=== PATIENT | female | born 1990 | race Caucasian/White ===

== ENCOUNTER 2017-09-07 13:31 | Emergency (ER) | payer SELFPAY ==
[2017-09-07 14:03] LABS: #Basophils 0.1 thou/uL (0.0-0.2); #Eosinphils 0.3 thou/uL (0.0-0.7); #Lymphocytes 2.4 thou/uL (1.20-3.40); #Monocytes 0.3 thou/uL (0.11-0.59); #Neutrophils 5.5 thou/uL (1.40-6.50); %Basophils 0.6 % (0.0-1.0); %Lymphocytes 27.9 % (21.0-51.0); %Monocytes 3.6 % (0.0-10.0); Hematocrit 40.7 % (36.0-47.0); Mean Platelet Volume 7.5 fL (7.4-10.4); Red Blood Cell (RBC) Count 4.55 mill/uL (4.20-5.40); White Blood Cell (WBC) Count 8.4 thou/uL (4.8-10.8)
--- NOTE | 2017-09-07 14:39 | ULT ---
LIMITED OB ULTRASOUND: Date: 09/07/17 HISTORY: 27-year-old female (9 weeks) with onset of vaginal bleeding today at work. FINDINGS: A single live intrauterine gestation is seen with measurements corresponding to an estimated gestati onal age of 9 weeks/0 days and MIKE at 04/12/18. heart rate measures 160 beats/minute. [place] length measures 1.89 cm, gestational sac diameter 4.0 cm, and yolk sac diameter 0.4 cm. A small a mount of subchorionic hemorrhage is seen. No free fluid is seen in the cul-de-sac. Both ovaries have a normal appearance and demonstrate flow. IMPRESSION: 1. Single live intrauterine of 9 weeks estimated gestational age and MIKE at 04/12/18. 2. Small subchorionic hemorrhage. POS: [facility]
[2017-09-07 14:57] LABS: Bilirubin Negative (Negative); Blood, Urine Small (Negative); Glucose, Urine (Dipstick) Negative (Negative); Ketone, Urine 80 mg/dL (Negative); Nitrite Negative (Negative); Protein, Urine (Dipstick) Negative (Neg-Trace); Urobilinogen 0.2 mg/dL (0.2-1.0)
[2017-09-07 15:00] LABS: Bacteria/HPF None Seen HPF (None Seen); Hyaline Casts/LPF 0-3 HYALINE CAST LPF (0-3 Hyaline); WBC/HPF 0-3 HPF (0-3)
[2017-09-07 15:07] LABS: RBC/HPF 0-3 HPF (0-3)
== END 2017-09-07 15:18 | disposition home or self-care (01) ==
LOC: ERS 13:31
DX: O20.0 Threatened abortion (principal); Z3A.09 9 weeks gestation of pregnancy
CPT/HCPCS: 36415; 76815; 81003; 81015; 84702; 85025; 86900; 86901; 87480; 87491; 87510; 87591; 87660

== ENCOUNTER 2017-09-26 12:24 | Emergency (ER) | payer MEDICAID, OTHER ==
[2017-09-26 13:17] LABS: Bilirubin Negative (Negative); Blood, Urine Negative (Negative); Glucose, Urine (Dipstick) Negative (Negative); Ketone, Urine Negative (Negative); Nitrite Negative (Negative); Protein, Urine (Dipstick) Negative (Neg-Trace); Urobilinogen 0.2 mg/dL (0.2-1.0)
[2017-09-26 13:20] LABS: Bacteria/HPF Rare-Few HPF (None Seen); Hyaline Casts/LPF 0-3 HYALINE CAST LPF (0-3 Hyaline); RBC/HPF None Seen HPF (0-3); Squamous Epithelial 0-3 HPF (0-3); WBC/HPF 0-3 HPF (0-3)
[2017-09-26] MEDS ORDERED: Acetaminophen 500 MG TAB ONE (14:53)
--- NOTE | 2017-09-26 15:40 | ULT ---
OB ULTRASOUND: 09/26/17 HISTORY: Pelvic pain. Real time images of the pelvis show a single viable intrauterine . The heart rate is 1 57 beats per minute. Placenta is difficult to localize at this time but appears to be forming anterio rly. The gestational sac measures 4.6 cm corresponding to 10 weeks, 1 day. Other measurements a re as follows: BPD 1.5 cm 12 weeks, 1 day Head circumference 5.9 cm 12 weeks, 2 days Abdominal circumference 5.0 cm 12 weeks, 0 days Femur length 0.7 cm 12 weeks, 1 day [place] to rump length 4.4 cm 11 weeks, 2 days Amniotic fluid is adequate for this stage of . The adnexa were not visualized. IMPRESSION: Single viable intrauterine . Measurements corresponding to a gestational age of 11 weeks, 5 days. Estimated date of delivery 04/12/18. POS: [facility]
== END 2017-09-26 15:15 | disposition home or self-care (01) ==
LOC: ERS 12:24
DX: O99.89 Other specified diseases and conditions complicating pregnancy, childbirth and the puerperium (principal); R10.30 Lower abdominal pain, unspecified; R19.7 Diarrhea, unspecified; Z3A.12 12 weeks gestation of pregnancy
CPT/HCPCS: 76815; 81003; 81015

== ENCOUNTER → 2017-11-10 | Day surgery (SDC) | payer OTHER ==
[2017-11-10 11:00] VITALS: BMI 24.5
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
== END ==
LOC: L&D/OP 10:28
PROVIDERS: ATTEND Obstetrics & Gynecology
DX: O99.89 Other specified diseases and conditions complicating pregnancy, childbirth and the puerperium (principal); R10.9 Unspecified abdominal pain; O99.342 Other mental disorders complicating pregnancy, second trimester; F41.9 Anxiety disorder, unspecified; Z3A.18 18 weeks gestation of pregnancy; Z79.899 Other long term (current) drug therapy
CPT/HCPCS: 99283

== ENCOUNTER 2017-12-20 17:20 | Day surgery (SDC) | payer OTHER ==
[2017-12-20 17:55] VITALS: BMI 26.2
--- NOTE | 2017-12-20 18:59 | PRG ---
DATE OF SERVICE: 12/20/2017 PRIMARY OB: Ms. Manju Valle. CHIEF COMPLAINT: Abdominal pain. HISTORY OF PRESENT ILLNESS: The patient is a 27-year-old G1, P0 female with an intrauterine pregnanc y at 24 weeks who is presenting today with a 1-day history of right lower quadrant pain. She reports that she started feeling yesterday and has gotten worse this started feeling yesterday and got a lit tle bit worse this morning. She has not taken any Tylenol or other pain medications for it. She marquez s report that it is worse with activity and movement such as getting out of bed. Patient does admit to having intercourse yesterday. She denies any uterine contractions, any vaginal bleeding, leakage of fluid, any change in discharge. She denies urinary urgency. She denies nausea, vomiting. She de nies chest pain, shortness of breath, fever, fall, headache, any new rash. She does have some mild l ower back pain. The patient reports she has an appointment on Thursday with her primary OB. PAST MEDICAL HISTORY: Anxiety. PAST SURGICAL HISTORY: None. SOCIAL HISTORY: Denies drug, alcohol or tobacco use. MEDICATIONS: None. OBSTETRIC HISTORY: This is her first . REVIEW OF SYSTEMS: Per HPI. OB LABS: Unavailable. ALLERGIES: No known drug allergies. PHYSICAL EXAMINATION: VITAL SIGNS: Blood pressure is 120/71, heart rate of 68, respiratory rate of 18, satting 100% on berry m air, temperature 98.4. GENERAL: She appears to be in no acute distress. She is alert and oriented, and cooperative and ple asant to interact with. HEENT: Head is normocephalic, atraumatic. LUNGS: Clear to auscultation bilaterally. HEART: Regular rate and rhythm. ABDOMEN: Soft and has some tenderness in her right lower quadrant in her groin region which is exace rbated with lateral displacement of the uterus. She has no tenderness on the left side or suprapubic ally. She has no rebound or peritoneal signs. GENITOURINARY: Has been deferred. She has no CVA tenderness. No SI joint tenderness. No tendernes s to palpation along her spine. heart tracing performed for abdominal pain and notes a fetus with a baseline in the 130s with m oderate long-term variability and possibly some irritability seen on the monitor. ASSESSMENT AND PLAN: The patient is a 27-year-old G1, P0 female with an intrauterine at 24 weeks who has had some right-sided groin pain since having intercourse yesterday. She has no eviden ce of labor at this time. The patient's pain is likely musculoskeletal in nature and seems to be sim ilar to the pain she came for the last month. The patient has an appointment with Ms. Manju Valle on Thursday, which we have encouraged her to keep. She has been given reassurance and labo r precautions.
== END 2017-12-20 18:41 | disposition home or self-care (01) ==
LOC: L&D/OP 17:20
PROVIDERS: ATTEND Advanced Practice Midwife
DX: O99.89 Other specified diseases and conditions complicating pregnancy, childbirth and the puerperium (principal); R10.31 Right lower quadrant pain; O99.342 Other mental disorders complicating pregnancy, second trimester; F41.9 Anxiety disorder, unspecified; Z3A.24 24 weeks gestation of pregnancy; Z79.899 Other long term (current) drug therapy

== ENCOUNTER 2018-04-04 21:00 | Inpatient (IN) | payer OTHER ==
[2018-04-04 22:13] VITALS: BMI 32.1
[2018-04-04] MEDS ORDERED: Ondansetron HCl/PF 4 MG/2 ML Vial IVP PRN (22:25)
[2018-04-04] MEDS ORDERED: Zolpidem Tartrate 5 MG TAB PO PRN (22:25)
[2018-04-04] MEDS ORDERED: Promethazine HCl 25 MG/ML VIAL IM PRN (22:25)
[2018-04-04] MEDS ORDERED: Lactated Ringer's 1,000 ML IV PRN (22:26)
[2018-04-04] MEDS: Lactated Ringer's 1,000 ML IV SCH (22:30)
[2018-04-04] MEDS ORDERED: Misoprostol 100 MCG TAB VAG SCH (22:30)
[2018-04-04] MEDS ORDERED: NS w/ Oxytocin 10 units 500 ML IVPB SCH (22:30)
[2018-04-04 22:39] LABS: Hemoglobin 11.9 g/dL (12.0-16.0); Mean Corpuscular HGB CONC 33.1 g/dL (32.0-36.0); Mean Corpuscular Hemoglobin 28.5 pg (27.0-31.0); Mean Corpuscular Volume 86.1 fl (81.0-99.0); Mean Platelet Volume 6.9 fL (7.4-10.4); Platelet Count 307 thou/uL (130-400); RBC Distribution Width 12.4 % (11.5-14.5); Red Blood Cell (RBC) Count 4.18 mill/uL (4.20-5.40); White Blood Cell (WBC) Count 8.8 thou/uL (4.8-10.8)
[2018-04-04] MEDS: Misoprostol 100 MCG TAB VAG PRN (22:55)
[2018-04-04 23:19] LABS: Syphilis Antibody Nonreactive (Nonreactive); Syphilis Antibody Index 0.04 S/CO (<1.00 Non-Reactive)
[2018-04-04 23:31] LABS: HBSAg Index 0.17 S/CO (0-0.99); Hep B Surf Ag Non-Reactive S/CO (NonReactive)
[2018-04-05] MEDS: Misoprostol 100 MCG TAB VAG PRN (02:55)
[2018-04-05] MEDS: Butorphanol Tartrate 1 MG/ML VIAL SLOW IVP PRN ×2 (04:45→07:05)
[2018-04-05] MEDS: Lactated Ringer's 1,000 ML IV SCH (06:35)
[2018-04-05] MEDS ORDERED: NS w/ Oxytocin 10 units 500 ML IV SCH (07:15)
--- NOTE | 2018-04-05 08:31 | PDOC.LDHP ---
Labor and Delivery H&P Chief complaint: scheduled induction (for IUGR EFW < 5%ile) HPI: 27yo at 39w2d by LMP for IOL due to IUGR dx at 34wk, EFW < 5%ile, normal dopplers, BPPs. Current gestational age (weeks): 39 Due date: 04/10/18 Dating criteria: last menstrual period Grav: 1 Para: 0 Current complications: IUGR Abnormal US findings: Yes (EFW < 5%ile) Past Medical History: PCOS, hx of HSV, on valtrex ppx since 34 wk Current medications: pre- vitamins, other (fish oil) Previous surgical history: none Allergies/Adverse Reactions: Allergies Allergy/AdvReac Type Severity Reaction Status Date / Time No Known Allergies Allergy Verified 04/04/18 22:18 Social history: none - Physical Exam Vital signs reviewed and normal: yes General: NAD Heart: RRR Lungs: CTAB Abdomen: gravid Extremeties: no edema FHT: category 1 Donaldson contractions every: 3min - OB Labs Blood type: O RH: negative Antibody Screen: negative HIV: negative RPR: negative HEPSAg: negative 1 hour GCT: negative GBS: negative Urine drug screen: not done Rubella: immune - Assessment L&D Assessment: medically indicated induction - Plan Plan: admit to L&D, cervical ripening, labor augmentation if indicated, informed consent obtained, anesthesia consult for pain management -: h/o HSV on valtrex, no lesions on exam or prodromal sx.
[2018-04-05] MEDS ORDERED: DISCONTINUE ALL PREVIOUS NARCOTICS FS SCH (08:45)
[2018-04-05] MEDS ORDERED: Bupivacaine 0.5% 20 ML, fentaNYL Citrate/PF 400 MCG in Sodium Chloride 0.9% 72 ML EPIDURAL SCH (08:45)
[2018-04-05] MEDS ORDERED: Lidocaine 1% (PF) 30 ML VIAL ONE (11:24)
[2018-04-05] MEDS ORDERED: NS / Oxytocin 40 units/1000ml 1,000 ML ONE ×2 (11:25→13:57)
[2018-04-05 11:46] LABS: Actual Bicarbonate (HCO3a) 23.5 mEq/L (22-28); Base Excess (BEa) -5.8 mEq/L (-2.0 to +3.0)
--- NOTE | 2018-04-05 11:51 | PDOC.OPDEL ---
OB Operative/Delivery Note Delivery Dr/Surgeon: Nacho Assist: Louis, MS4 Pre-Delivery Diagnosis: medically indicated induction (IUGR) Procedure/Post Delivery Dx: operative vaginal delivery (VAVD, NRFHT) Weeks gestation: 39 Anesthesia: epidural - Findings A Sex: male - Additional Findings/Plan Placenta delivered: spontaneous Repaired Obstetrical Laceration: periurethral (right, repaired with 3-0 chromic for hemostasis) Estimated blood loss: 200 Compilations/Other Findings: NC x 1 reduced on perineum Post delivery plan: routine recovery
[2018-04-05] MEDS ORDERED: HYDROcodone/Acetaminophen 5/325 mg Tablet PO PRN ×2 (16:29)
[2018-04-05] MEDS ORDERED: Preparation H Ointment 28 GM TUBE PR PRN (16:29)
[2018-04-05] MEDS ORDERED: diphenhydrAMINE 25 MG CAP PO PRN (16:29)
[2018-04-05] MEDS ORDERED: Adacel (T-DAP) 0.5 ML VIAL IM ONE (16:29)
[2018-04-05] MEDS ORDERED: NS / Oxytocin 40 units/1000ml 1,000 ML IV SCH (16:29)
[2018-04-05] MEDS ORDERED: Milk Of Magnesia 30 ML UDCUP PO PRN (16:29)
[2018-04-05] MEDS ORDERED: Lanolin Ointment 7 GM TUBE TOP PRN (16:29)
[2018-04-05] MEDS ORDERED: Ondansetron HCl/PF 4 MG/2 ML Vial IVP PRN (16:29)
[2018-04-05] MEDS ORDERED: Bisacodyl 10 MG SUPP PR PRN (16:29)
[2018-04-05] MEDS ORDERED: Benzocaine/Menthol 20-0.5% 60 ML CAN TOP PRN (16:29)
[2018-04-05] MEDS ORDERED: ePHEDrine/0.9% NaCl/PF SYRINGE 50 mg/10 ml ONE (20:00)
[2018-04-05] MEDS ORDERED: Bupivacaine/Epinephrine 0.25% 30 ML VIAL ONE (20:00)
[2018-04-05] MEDS: Ibuprofen 800 MG TAB PO SCH (20:14)
[2018-04-05] MEDS: Docusate Calcium (SURFAK) 240 MG CAP PO SCH (20:15)
[2018-04-06] MEDS: Ferrous Sulfate 325 MG TAB PO SCH ×3 (01:52→18:49)
[2018-04-06] MEDS: Ibuprofen 800 MG TAB PO SCH ×4 (01:53→22:15)
--- NOTE | 2018-04-06 09:25 | PDOC.PP ---
Post Progress Note Post Day #: 1 Subjective: BF difficulty Vital Signs (12 hours) Temp Pulse Resp BP 04/06/18 08:00 98.4 F 62 20 04/06/18 07:58 98.4 F 62 20 125/61 04/06/18 05:00 98.2 F 79 20 115/57 L 04/06/18 00:00 97.7 F 70 18 118/64 Weight Weight 187 lb - Physical Examination General: NAD Cardiovascular: RRR Respiratory: non-labored breathing Abdominal: appropriately TTP Psychiatric: normal affect Result Diagrams: 04/04/18 22:11 Additional Labs: Post Labs Blood Type O NEGATIVE 04/04/18 22:11 Hep Bs Antigen Non-Reactive S/CO (NonReactive) 04/04/18 22:11 (1) Vaginal delivery Code(s): O80 - ENCOUNTER FOR FULL-TERM UNCOMPLICATED DELIVERY Status: Acute - Assessment/Plan PPD1 s/p VAVD VSSAF Doing well, lochia appropriate LC consult for BF help Rh pos RImm Cont PP care.
[2018-04-06] MEDS: Docusate Calcium (SURFAK) 240 MG CAP PO SCH ×2 (09:30→22:15)
[2018-04-06] MEDS: Prenatal Vitamin 1 TAB PO SCH (09:30)
[2018-04-07] MEDS: Ibuprofen 800 MG TAB PO SCH (05:59)
[2018-04-07 07:56] VITALS: BP 117/61; TEMP 98
[2018-04-07] MEDS: Ferrous Sulfate 325 MG TAB PO SCH (08:00)
[2018-04-07] MEDS: Docusate Calcium (SURFAK) 240 MG CAP PO SCH (08:12)
[2018-04-07] MEDS: Prenatal Vitamin 1 TAB PO SCH (08:12)
--- NOTE | 2018-04-07 09:09 | PDOC.PP ---
Post Progress Note Post Day #: 2 Subjective: nursing well, no pain, normal lochia PO intake tolerated: yes Flatus: yes Ambulation: yes Vital Signs (12 hours) Temp Pulse Resp BP 04/07/18 08:00 98.0 F 73 20 04/07/18 07:56 98.0 F 73 20 117/61 Weight Weight 187 lb - Physical Examination General: NAD Respiratory: non-labored breathing Abdominal: no distention Fundus firm & at: below umb Skin: no rash Neurological: no gross focal deficits Psychiatric: A&Ox3, normal affect Result Diagrams: 04/04/18 22:11 Additional Labs: Post Labs Blood Type O NEGATIVE 04/04/18 22:11 Hep Bs Antigen Non-Reactive S/CO (NonReactive) 04/04/18 22:11 (1) Vaginal delivery Code(s): O80 - ENCOUNTER FOR FULL-TERM UNCOMPLICATED DELIVERY Status: Acute - Assessment/Plan PPD2 doing well, plan for DC today.
== END 2018-04-07 13:38 | disposition home or self-care (01) | DRG 774 ==
LOC: L&D 21:37 → 3SW 04-05 14:05
PROVIDERS: ADMIT Student in an Organized Health Care Education/Training Program; ATTEND Student in an Organized Health Care Education/Training Program
PROC: 10E0XZZ Delivery of Products of Conception, External Approach (ICD-10-PCS; principal; 2018-04-04)
PROC: 0UQMXZZ Repair Vulva, External Approach (ICD-10-PCS; 2018-04-04)
PROC: 3E0P7VZ Introduction of Hormone into Female Reproductive, Via Natural or Artificial Opening (ICD-10-PCS; 2018-04-04)
DX: O36.5930 Maternal care for other known or suspected poor fetal growth, third trimester, not applicable or unspecified (principal); O98.32 Other infections with a predominantly sexual mode of transmission complicating childbirth; O69.81X0 Labor and delivery complicated by cord around neck, without compression, not applicable or unspecified; O71.82 Other specified trauma to perineum and vulva; B00.9 Herpesviral infection, unspecified; Z3A.39 39 weeks gestation of pregnancy; Z37.0 Single live birth; Z79.899 Other long term (current) drug therapy
CPT/HCPCS: 36415; 51702; 82805; 85027; 85461; 86780; 86850; 86870; 86900; 86901; 87340; 90384; 96372; J0595; J2001; J3010; J3490; J7050

== ENCOUNTER 2018-08-08 19:16 | Emergency (ER) | payer OTHER, SELFPAY ==
[2018-08-08] MEDS ORDERED: Morphine 4 MG/ML VIAL ONE ×2 (19:27→20:22)
[2018-08-08] MEDS ORDERED: Diazepam 5 MG TAB ONE ×2 (19:27→19:36)
[2018-08-08] MEDS ORDERED: diphenhydrAMINE 25 MG CAP ONE ×2 (19:28→19:36)
== END 2018-08-08 21:35 | disposition home or self-care (01) ==
LOC: ERS 19:16
DX: T63.431A Toxic effect of venom of caterpillars, accidental (unintentional), initial encounter (principal); F41.9 Anxiety disorder, unspecified; F17.210 Nicotine dependence, cigarettes, uncomplicated
CPT/HCPCS: 99282; J2270

== ENCOUNTER 2019-10-04 19:10 | Emergency (ER) | payer SELFPAY ==
[2019-10-04 20:14] LABS: Bilirubin Negative (Negative); Blood, Urine Negative (Negative); Clarity Clear (Clear); Glucose, Urine (Dipstick) Normal (Negative); Leukocyte Negative Leu/uL (Negative); Nitrite Negative (Negative); Protein, Urine (Dipstick) Negative (Neg-Trace); Urobilinogen Normal mg/dL (Less than 2)
[2019-10-04 20:18] LABS: Pregnancy Test - Urine (BHCG) Negative (Negative); Pregu Control Background? CLEAR/WHITE (CLR/WHITE); Pregu Control Bar Appear? YES (CONTROL BAR); Specific Gravity 1.018 (1.002-1.036)
[2019-10-04 20:29] LABS: Hemoglobin 14.4 g/dL (12.0-16.0); Mean Corpuscular Hemoglobin 29.2 pg (27.0-31.0); Mean Corpuscular Volume 88.6 fL (78.0-98.0); Mean Platelet Volume 7.4 fL (7.4-10.4); Platelet Count 294 thou/uL (130-400); Red Blood Cell (RBC) Count 4.94 mill/uL (4.20-5.40)
[2019-10-04 20:49] LABS: ALT (SGPT) 7 U/L (8-55); AST (SGOT) 12 U/L (5-34); Albumin 4.2 g/dL (3.5-5.0); Alkaline Phosphatase 77 U/L (40-110); Anion Gap 10 mmol/L (10-20); BUN (Urea Nitrogen) 15 mg/dL (7.0-18.7); Bilirubin, Total 0.2 mg/dL (0.2-1.2); Calc. Creatinine Clearance 0 mL/min (70-130); Calcium 9.3 mg/dL (7.8-10.44); Carbon Dioxide 29 mmol/L (22-29); Chloride 105 mmol/L (98-107); Estimated GFR-MDRD 80; Globulin 2.8 g/dL (2.4-3.5); Glucose 88 mg/dL (70-105); Lipase 19 U/L (8-78); Sodium 140 mmol/L (136-145)
[2019-10-04 20:55] LABS: Band 1 % (5-11); Eosinophils 12 % (0-10); Lymphocytes 41 % (21-51); MDiff Complete? YES; Monocytes 4 % (0-10); Neutrophil 42 % (42-75)
[2019-10-04] MEDS ORDERED: Ondansetron ODT 4 MG TAB ONE ×2 (21:28→22:36)
== END 2019-10-04 23:23 | disposition home or self-care (01) ==
LOC: ERS 19:10
DX: R11.2 Nausea with vomiting, unspecified (principal); R19.7 Diarrhea, unspecified; R10.13 Epigastric pain; F41.9 Anxiety disorder, unspecified; Z87.891 Personal history of nicotine dependence
CPT/HCPCS: 36415; 80053; 81003; 81025; 83690; 85025; 87804; 99284; Q0162

== ENCOUNTER 2020-10-15 12:19 | Emergency (ER) | payer SELFPAY ==
[2020-10-15 16:22] LABS: SARS-CoV-2 MS2 Positive; SARS-CoV-2 N Gene Negative; SARS-CoV-2 S Gene Negative; SARS-CoV-2 by NAA Not Detected (NotDetected); SARS-CoV-2 orf1ab Negative
== END 2020-10-15 12:56 | disposition home or self-care (01) ==
LOC: ERS 12:19
DX: J02.9 Acute pharyngitis, unspecified (principal); R05 Cough; R09.81 Nasal congestion; Z20.828 Contact with and (suspected) exposure to other viral communicable diseases; Z87.891 Personal history of nicotine dependence
CPT/HCPCS: 87635; 99283; U0003

== ENCOUNTER 2020-10-26 15:05 | Emergency (ER) | payer SELFPAY ==
[2020-10-26 22:10] LABS: SARS-CoV-2 MS2 Positive; SARS-CoV-2 N Gene Negative; SARS-CoV-2 S Gene Negative; SARS-CoV-2 by NAA Not Detected (NotDetected); SARS-CoV-2 orf1ab Negative
== END 2020-10-26 15:24 ==
LOC: ERS 15:05
DX: Z20.822 Contact with and (suspected) exposure to COVID-19 (principal); Z87.891 Personal history of nicotine dependence
CPT/HCPCS: 87635; 99283; U0003

== ENCOUNTER 2020-11-30 12:45 | Emergency (ER) | payer OTHER | END 2020-11-30 14:43 | disposition home or self-care (01) | LOC: ERS 12:45 | DX: J06.9 Acute upper respiratory infection, unspecified (principal); Z87.891 Personal history of nicotine dependence | CPT/HCPCS: 87804; 99283 ==

== ENCOUNTER 2021-02-27 18:17 | Emergency (ER) | payer OTHER, SELFPAY ==
[2021-02-27] MEDS ORDERED: Acetaminophen 500 MG TAB ONE (19:35)
[2021-02-27 19:36] LABS: #Basophils 0.1 thou/uL (0.0-0.2); #Eosinphils 0.4 thou/uL (0.0-0.7); #Lymphocytes 2.9 thou/uL (1.20-3.40); #Monocytes 0.5 thou/uL (0.11-0.59); #Neutrophils 5.3 thou/uL (1.40-6.50); %Basophils 0.8 % (0.0-1.0); %Eosinophils 4.3 % (0.0-10.0); %Lymphocytes 31.8 % (21.0-51.0); %Monocytes 5.5 % (0.0-10.0); %Neutrophils 57.6 % (42.0-75.0); Hemoglobin 13.6 g/dL (12.0-16.0); Mean Corpuscular HGB CONC 32.2 g/dL (32.0-36.0); Mean Corpuscular Hemoglobin 27.8 pg (27.0-31.0); Mean Corpuscular Volume 86.3 fL (78.0-98.0); Mean Platelet Volume 7.3 fL (7.4-10.4); Platelet Count 323 thou/uL (130-400); RBC Distribution Width 12.3 % (11.5-14.5); White Blood Cell (WBC) Count 9.1 thou/uL (4.8-10.8)
[2021-02-27 20:58] LABS: Bacteria/HPF None Seen HPF (None Seen); Bilirubin Negative (Negative); Blood, Urine Negative (Negative); Clarity Clear (Clear); Glucose, Urine (Dipstick) Normal (Negative); Ketone, Urine Negative (Negative); Leukocyte 25 Leu/uL (Negative); Nitrite Negative (Negative); Protein, Urine (Dipstick) Negative (Neg-Trace); RBC/HPF 0-3 HPF (0-3); Specific Gravity, Urine 1.015 (1.002-1.036); Squamous Epithelial 0-3 HPF (0-3); Urobilinogen Normal mg/dL (Less than 2); WBC/HPF 0-3 HPF (0-3)
== END 2021-02-27 21:54 | disposition home or self-care (01) ==
LOC: ERS 18:17
DX: O99.891 Other specified diseases and conditions complicating pregnancy (principal); R10.30 Lower abdominal pain, unspecified; Z3A.01 Less than 8 weeks gestation of pregnancy; Z87.891 Personal history of nicotine dependence
CPT/HCPCS: 36415; 76856; 81003; 81015; 84702; 85025; 86900; 86901; 93976

== ENCOUNTER 2021-03-14 14:08 | Emergency (ER) | payer OTHER ==
[2021-03-14 15:07] LABS: #Eosinphils 0.3 thou/uL (0.0-0.7); #Lymphocytes 2.3 thou/uL (1.20-3.40); #Monocytes 0.5 thou/uL (0.11-0.59); #Neutrophils 5.5 thou/uL (1.40-6.50); %Basophils 0.6 % (0.0-1.0); %Eosinophils 3.6 % (0.0-10.0); %Lymphocytes 26.4 % (21.0-51.0); %Monocytes 5.3 % (0.0-10.0); %Neutrophils 64.1 % (42.0-75.0); Hemoglobin 12.7 g/dL (12.0-16.0); Mean Corpuscular Hemoglobin 28.8 pg (27.0-31.0); Mean Corpuscular Volume 84.9 fL (78.0-98.0); Mean Platelet Volume 7.1 fL (7.4-10.4); Platelet Count 285 thou/uL (130-400); Red Blood Cell (RBC) Count 4.41 mill/uL (4.20-5.40); White Blood Cell (WBC) Count 8.5 thou/uL (4.8-10.8)
[2021-03-14] MEDS ORDERED: Ondansetron PF 4 MG/2 ML Vial ONE (15:10)
[2021-03-14 15:29] LABS: ALT (SGPT) 9 U/L (8-55); AST (SGOT) 15 U/L (5-34); Alkaline Phosphatase 61 U/L (40-110); Anion Gap 13 mmol/L (10-20); BUN (Urea Nitrogen) 7 mg/dL (7.0-18.7); Bilirubin, Total 0.3 mg/dL (0.2-1.2); Calc. Creatinine Clearance 0 mL/min (70-130); Calcium 9.3 mg/dL (7.8-10.44); Carbon Dioxide 22 mmol/L (22-29); Chloride 106 mmol/L (98-107); Globulin 2.7 g/dL (2.4-3.5); Glucose 79 mg/dL (70-105); Potassium 3.7 mmol/L (3.5-5.1); Protein, Total 6.7 g/dL (6.0-8.3); Sodium 137 mmol/L (136-145)
[2021-03-14 16:45] LABS: Bilirubin Negative (Negative); Blood, Urine Negative (Negative); Clarity Clear (Clear); Glucose, Urine (Dipstick) Normal (Negative); Ketone, Urine 80 mg/dL (Negative); Leukocyte Negative Leu/uL (Negative); Nitrite Negative (Negative); Protein, Urine (Dipstick) Negative (Neg-Trace); Specific Gravity, Urine 1.019 (1.002-1.036); Urobilinogen Normal mg/dL (Less than 2); pH, Urine 6.5 (5.0-9.0)
== END 2021-03-14 17:35 | disposition home or self-care (01) ==
LOC: ERS 14:08
DX: O21.9 Vomiting of pregnancy, unspecified (principal); O99.891 Other specified diseases and conditions complicating pregnancy; R19.7 Diarrhea, unspecified; Z3A.08 8 weeks gestation of pregnancy; Z87.891 Personal history of nicotine dependence
CPT/HCPCS: 36415; 80053; 81003; 84702; 85025; 86900; 86901; 96374; J2405

== ENCOUNTER 2022-11-20 15:28 | Emergency (ER) | payer SELFPAY ==
[2022-11-20 17:14] LABS: Bilirubin Negative (Negative); Blood, Urine Negative (Negative); Clarity Clear (Clear); Glucose, Urine (Dipstick) Normal (Negative); Ketone, Urine Negative (Negative); Leukocyte Negative Leu/uL (Negative); Nitrite Negative (Negative); Protein, Urine (Dipstick) Negative (Neg-Trace); Specific Gravity, Urine 1.007 (1.002-1.036); Urobilinogen Normal mg/dL (Less than 2); pH, Urine 6.5 (5.0-9.0)
[2022-11-20 17:16] LABS: #Eosinphils 0.5 thou/uL (0.0-0.7); #Lymphocytes 2.3 thou/uL (1.20-3.40); #Monocytes 0.4 thou/uL (0.11-0.59); #Neutrophils 2.2 thou/uL (1.40-6.50); %Basophils 0.8 % (0.0-1.0); %Eosinophils 9.2 % (0.0-10.0); %Lymphocytes 42.1 % (21.0-51.0); %Monocytes 7.6 % (0.0-10.0); %Neutrophils 40.3 % (42.0-75.0); Hemoglobin 14.7 g/dL (12.0-16.0); Mean Corpuscular HGB CONC 32.6 g/dL (32.0-36.0); Mean Corpuscular Hemoglobin 28.6 pg (27.0-31.0); Mean Corpuscular Volume 87.7 fl (78.0-98.0); Platelet Count 218 10x3/uL (130-400); RBC Distribution Width 12.1 % (11.5-14.5); Red Blood Cell (RBC) Count 5.16 mill/uL (4.20-5.40); White Blood Cell (WBC) Count 5.4 10x3/uL (4.8-10.8)
[2022-11-20 17:45] LABS: ALT (SGPT) 9 U/L (8-55); AST (SGOT) 15 U/L (5-34); Albumin 4.1 g/dL (3.5-5.0); Alkaline Phosphatase 62 U/L (40-110); Anion Gap 11 mmol/L (10-20); BUN (Urea Nitrogen) 7 mg/dL (7.0-18.7); Bilirubin, Total 0.3 mg/dL (0.2-1.2); Calc. Creatinine Clearance 0 mL/min (70-130); Calcium 9.1 mg/dL (7.8-10.44); Carbon Dioxide 23 mmol/L (22-29); Chloride 108 mmol/L (98-107); Estimated GFR 99; Globulin 2.7 g/dL (2.4-3.5); Glucose 94 mg/dL (70-105); Lipase 14 U/L (8-78); Potassium 3.9 mmol/L (3.5-5.1); Protein, Total 6.8 g/dL (6.0-8.3); Sodium 138 mmol/L (136-145)
[2022-11-20] MEDS ORDERED: Loperamide HCl 2 MG CAP ONE (19:21)
[2022-11-20] MEDS ORDERED: Ciprofloxacin 500 MG TAB ONE (20:09)
== END 2022-11-20 20:29 | disposition home or self-care (01) ==
LOC: ERS 15:28
DX: A09 Infectious gastroenteritis and colitis, unspecified (principal); Z87.891 Personal history of nicotine dependence
CPT/HCPCS: 36415; 80053; 81003; 83690; 85025; 96360

== ENCOUNTER 2023-01-23 19:06 | Emergency (ER) | payer OTHER | END 2023-01-23 20:40 | disposition home or self-care (01) | LOC: ERS 19:06 | DX: L08.9 Local infection of the skin and subcutaneous tissue, unspecified (principal); Z87.891 Personal history of nicotine dependence ==

== ENCOUNTER 2023-11-19 09:21 | Emergency (ER) | payer OTHER ==
[2023-11-19] MEDS ORDERED: Ketorolac Tromethamine 30 MG (1 mL) VIAL ONE (10:19)
[2023-11-19 10:33] LABS: #Basophils 0.1 thou/uL (0.0-0.2); #Eosinphils 0.3 thou/uL (0.0-0.7); #Monocytes 0.3 thou/uL (0.11-0.59); #Neutrophils 3.8 thou/uL (1.40-6.50); %Basophils 0.8 % (0.0-1.0); %Eosinophils 4.1 % (0.0-10.0); %Lymphocytes 33.5 % (21.0-51.0); %Monocytes 4.4 % (0.0-10.0); Hematocrit 44.9 % (36.0-47.0); Hemoglobin 14.3 g/dL (12.0-16.0); Mean Corpuscular HGB CONC 31.8 g/dL (32.0-36.0); Mean Corpuscular Hemoglobin 27.6 pg (27.0-31.0); Mean Corpuscular Volume 86.5 fl (78.0-98.0); Mean Platelet Volume 9.6 fL (7.4-10.4); Platelet Count 327 10x3/uL (130-400); RBC Distribution Width 12.8 % (11.5-14.5); Red Blood Cell (RBC) Count 5.19 mill/uL (4.20-5.40); White Blood Cell (WBC) Count 6.7 10x3/uL (4.8-10.8)
[2023-11-19 11:02] LABS: ALT (SGPT) 13 U/L (8-55); AST (SGOT) 17 U/L (5-34); Albumin 4.3 g/dL (3.5-5.0); Alkaline Phosphatase 93 U/L (40-110); Anion Gap 11 mmol/L (10-20); BUN (Urea Nitrogen) 12 mg/dL (7.0-18.7); Bilirubin, Total 0.2 mg/dL (0.2-1.2); Calc. Creatinine Clearance 0 mL/min (70-130); Calcium 9.3 mg/dL (7.8-10.44); Carbon Dioxide 26 mmol/L (22-29); Chloride 108 mmol/L (98-107); Estimated GFR 108; Glucose 96 mg/dL (70-105); Potassium 4.7 mmol/L (3.5-5.1); Protein, Total 7.3 g/dL (6.0-8.3); Sodium 140 mmol/L (136-145)
== END 2023-11-19 11:48 | disposition home or self-care (01) ==
LOC: ERS 09:21
DX: R22.31 Localized swelling, mass and lump, right upper limb (principal); Z87.891 Personal history of nicotine dependence
CPT/HCPCS: 80053; 85025; 86140; 96374; J1885

== ENCOUNTER 2023-12-16 10:31 | Day surgery (SDC) | payer OTHER ==
[2023-12-15 09:20] VITALS: BMI 35.4
[2023-12-16 12:02] LABS: Anion Gap 12 mmol/L (10-20); BUN (Urea Nitrogen) 14 mg/dL (7.0-18.7); Calc. Creatinine Clearance 152 mL/min (70-130); Calcium 9.1 mg/dL (7.8-10.44); Carbon Dioxide 23 mmol/L (22-29); Chloride 108 mmol/L (98-107); Estimated GFR 107; Glucose 80 mg/dL (70-105); Potassium 4.5 mmol/L (3.5-5.1); Sodium 138 mmol/L (136-145)
[2023-12-16] MEDS ORDERED: PROPOFOL 20 ML ONE (12:12)
[2023-12-16] MEDS ORDERED: fentaNYL PF 100 MCG/2 ML SYRINGE ONE (12:12)
[2023-12-16] MEDS ORDERED: Lidocaine 1% (PF) 30 ML VIAL ONE (12:15)
[2023-12-16] MEDS ORDERED: EPINEPHrine 1 MG/ML VIAL ONE (12:15)
[2023-12-16] MEDS ORDERED: Bupivacaine 0.25% HCL 30 ML VIAL ONE (12:15)
[2023-12-16] MEDS ORDERED: CEFAZOLIN 2 GM VIAL ONE (12:26)
[2023-12-16] MEDS ORDERED: Sodium Chloride 0.9% 100 ML ONE (12:26)
[2023-12-16] MEDS ORDERED: ePHEDrine Sulfate 50 MG/10 ML VIAL ONE (12:50)
[2023-12-16] MEDS ORDERED: Dexamethasone 20 MG/5 ML VIAL ONE (12:51)
[2023-12-16] MEDS ORDERED: Ketorolac Tromethamine 30 MG (1 mL) VIAL ONE (12:51)
[2023-12-16] MEDS ORDERED: HYDROcodone/Acetaminophen 5/325 mg Tablet ONE (14:05)
== END 2023-12-16 14:27 | disposition home or self-care (01) ==
LOC: SDC 10:31
PROVIDERS: ATTEND Surgery Surgery of the Hand
PROC: 0LB70ZZ Excision of Right Hand Tendon, Open Approach (ICD-10-PCS; principal; 2023-12-16)
DX: D48.19 Other specified neoplasm of uncertain behavior of connective and other soft tissue (principal); M67.441 Ganglion, right hand
CPT/HCPCS: 80048; 88307; J0171; J0665; J1100; J1885; J2001; J2704; J3490

== ENCOUNTER 2025-06-02 09:03 | Emergency (ER) | payer SELFPAY ==
[2025-06-02] MEDS ORDERED: Ketorolac Tromethamine 30 MG (1 mL) VIAL ONE (09:43)
[2025-06-02] MEDS ORDERED: Dexamethasone 10 MG/ML VIAL ONE (09:44)
== END 2025-06-02 10:33 | disposition home or self-care (01) ==
LOC: ERS 09:03
DX: R05.1 Acute cough (principal); Z87.891 Personal history of nicotine dependence
CPT/HCPCS: 87081; 87428; 87430; J1100; J1885